=== PATIENT | female | born 2000 | race Two or more races ===

== ENCOUNTER 2021-07-12 09:45 | Inpatient (IN) | payer OTHER ==
[2021-07-12] MEDS ORDERED: DEXTROSE 5%-LACTATED RINGERS 1,000 ML IV SCH (11:00)
[2021-07-12 11:22] VITALS: BMI 35.7
[2021-07-12] MEDS ORDERED: AMPICILLIN - 2 GM in SODIUM CHLORIDE 100 ML IVPB ONE (12:07)
[2021-07-12] MEDS ORDERED: SODIUM CHLORIDE 100 ML IVPB ONE (12:20)
[2021-07-12] MEDS ORDERED: AMPICILLIN SODIUM 2 GM VIAL ONE (12:20)
[2021-07-12 12:39] LABS: BASO % 0.2 % (0-2.0); EOS % 0.1 % (0-4.5); HEMATOCRIT 29.3 % (32.4-45.2); HEMOGLOBIN 9.6 GM/dL (10.7-15.3); LYMPH % 9.9 % (8-40); MCHC 32.8 g/dl (32.0-36.0); MEAN PLT VOLUME 9.2 fl (7.5-11.1); MONO % 6.5 % (3.8-10.2); NEUT % 83.3 % (42.8-82.8); PLATELET COUNT 148 10^3/uL (134-434); RBC 3.85 M/mm3 (3.60-5.2); RDW 16.6 % (11.6-15.6); WHITE BLOOD COUNT 8.9 K/mm3 (4.0-10.0)
[2021-07-12 12:45] LABS: INR 0.95 (0.83-1.09); PROTHROMBIN TIME (PATIENT) 10.6 SEC (9.7-13.0)
[2021-07-12 12:47] LABS: ACTIVATED PTT 19.7 SECONDS (25.2-36.5)
[2021-07-12 13:00] LABS: ALBUMIN 2.5 g/dl (3.4-5.0); BLOOD UREA NITROGEN 9.1 mg/dL (7-18); CALCIUM 8.3 mg/dL (8.5-10.1)
[2021-07-12 13:03] LABS: CREATININE 0.6 mg/dL (0.55-1.3)
[2021-07-12 13:05] LABS: BILIRUBIN,TOTAL 0.2 mg/dL (0.2-1)
[2021-07-12] MEDS: ELECTROLYTE-148 SOLN 1,000 ML IV SCH ×2 (13:15→14:42)
[2021-07-12] MEDS ORDERED: FENTANYL/BUPIVACAINE/NS/PF - PCEA - 50 ML DISP.SYRIN EP ONE ×2 (13:19→18:25)
[2021-07-12 13:26] LABS: HEPATITIS B SURFACE AG MATERN NON-REACTIVE (NONREACTIVE); SYPHILIS W/ RPR CONF NON-REACTIVE (NONREACTIVE)
[2021-07-12] MEDS: FENTANYL/BUPIVACAINE/NS/PF - PCEA - 50 ML DISP.SYRIN EP SCH ×2 (13:32→18:31)
[2021-07-12] MEDS ORDERED: NALOXONE HCL 0.4 MG/ML VIAL IVPUSH PRN (13:43)
[2021-07-12 15:15] LABS: COCAINE, UR NEGATIVE (NEGATIVE); URINE AMPHETAMINES NEGATIVE (NEGATIVE); URINE BARBITURATES NEGATIVE (NEGATIVE); URINE BENZODIAZEPINES NEGATIVE (NEGATIVE)
[2021-07-12 15:16] LABS: METHADONE, UR NEGATIVE (NEGATIVE); OPIATES, URI NEGATIVE (NEGATIVE); PHENCYCLIDINE,URINE NEGATIVE (NEGATIVE)
[2021-07-12] MEDS ORDERED: OXYTOCIN 30 UNITS in 0.9% NS 30 UNIT/500 ML INFUS.BAG IVPB ONE (15:54)
[2021-07-12] MEDS ORDERED: OXYTOCIN 30 UNITS in 0.9% NS 30 UNIT/500 ML INFUS.BAG IVPB SCH (16:00)
[2021-07-12] MEDS ORDERED: AMPICILLIN - 1 GM in SODIUM CHLORIDE 100 ML IVPB SCH (16:08)
[2021-07-12] MEDS ORDERED: OXYTOCIN 20 UNITS in 0.9% NS 20 UNIT/1,000 ML INFUS.BAG IV ONE (16:41)
[2021-07-12] MEDS ORDERED: METHYLERGONOVINE MALEATE 0.2 MG/1 ML AMP IM PRN (19:44)
[2021-07-12] MEDS ORDERED: ACETAMINOPHEN 325 MG TABLET (FP) PO PRN (19:44)
[2021-07-12] MEDS ORDERED: BENZOCAINE 20% 57 GM BOTTLE TP PRN (19:44)
[2021-07-12] MEDS ORDERED: BENZOCAINE 28 GM HEMORRHOIDAL OINTMENT TP PRN (19:44)
[2021-07-12] MEDS ORDERED: WITCH HAZEL 50% (TUCKS) 40 PAD/JAR PAD TP PRN (19:44)
[2021-07-12] MEDS ORDERED: BISACODYL 10 MG SUPP.RECT RC PRN (19:44)
[2021-07-12] MEDS ORDERED: OXYTOCIN 20 UNITS in 0.9% NS 20 UNIT/1,000 ML INFUS.BAG IV SCH (19:45)
[2021-07-12] MEDS: IBUPROFEN 600 MG TABLET (FP) PO PRN (22:25)
[2021-07-13] MEDS: IBUPROFEN 600 MG TABLET (FP) PO PRN ×3 (02:25→19:45)
[2021-07-13 08:43] LABS: BASO % 0.1 % (0-2.0); HEMATOCRIT 23.7 % (32.4-45.2); HEMOGLOBIN 7.6 GM/dL (10.7-15.3); LYMPH % 10.9 % (8-40); MCH 24.4 pg (25.7-33.7); MEAN CELL VOLUME 76.5 fl (80-96); MEAN PLT VOLUME 9.4 fl (7.5-11.1); MONO % 9.7 % (3.8-10.2); NEUT % 79.3 % (42.8-82.8); PLATELET COUNT 147 10^3/uL (134-434); WHITE BLOOD COUNT 13.8 K/mm3 (4.0-10.0)
[2021-07-13] MEDS ORDERED: SENNOSIDES/DOCUSATE COMBO (SENNA PLUS) TABLET (UD) PO PRN (22:00)
[2021-07-14 09:08] VITALS: BP 110/74; PULSE 92; TEMP 97.8
== END 2021-07-14 09:11 | disposition home or self-care (01) | DRG 560 ==
LOC: EDBD 09:45 → JDEL 09:45 → JLDR 10:50 → J3W 21:39
PROVIDERS: ADMIT Obstetrics & Gynecology; ATTEND Obstetrics & Gynecology
PROC: 10E0XZZ Delivery of Products of Conception, External Approach (ICD-10-PCS; principal; 2021-07-12)
DX: O42.02 Full-term premature rupture of membranes, onset of labor within 24 hours of rupture (principal); O66.0 Obstructed labor due to shoulder dystocia; O99.02 Anemia complicating childbirth; D50.9 Iron deficiency anemia, unspecified; Z3A.39 39 weeks gestation of pregnancy; Z37.0 Single live birth
CPT/HCPCS: 36415; 59409; 80053; 80307; 85025; 85610; 85730; 86762; 86780; 86850; 86900; 86901; 87340; 93005; 93010; C9803; U0003; U0005